=== PATIENT | male | born 1975 ===

== ENCOUNTER 2019-02-21 08:20 | Day surgery (SDC) | payer OTHER | END 2019-02-21 10:45 | disposition home or self-care (01) | LOC: AMB-ENDOS 08:20 → EDBD 08:45 → AMB-ENDOS 08:45 | DX: D12.3 Benign neoplasm of transverse colon (principal); K62.1 Rectal polyp; K64.1 Second degree hemorrhoids; Z12.11 Encounter for screening for malignant neoplasm of colon ==

== ENCOUNTER 2021-08-17 12:30 | Outpatient (CLI) | payer OTHER | END 2021-08-17 13:30 | disposition home or self-care (01) | LOC: ASH CLINIC 12:30 | DX: U07.1 COVID-19 (principal); Z23 Encounter for immunization ==